=== PATIENT | female | born 1950 | race Caucasian/White ===

== ENCOUNTER 2019-07-31 09:01 | Day surgery (SDC) | payer MEDICARE ==
[~2019-07-31] VITALS: Ht 154.9 cm; Wt 117.3 kg
[~2019-07-31 09:01] MED LIST: ACET120S PO; CITA20 PO; NAPR220 PO; TOLT4 PO
--- NOTE | 2019-07-31 09:52 | NUR ---
Ambulatory in Day Surgery. History, Chart, Medications and Allergies reviewed before start of procedure.Patient confirms NPO status and agrees with scheduled surgery. Patient reports completing Chlorhexadine shower X2 prior to admission to hospital.Surgical site prepped with 2% Chlorhexidine cloth wipe. Lungs clear T/O to Auscultation.
--- NOTE | 2019-07-31 15:30 | NUR ---
VSS. TXA STARTED. ASSESSMENT CHARTED. FAMILY AT BEDSIDE. PT EATING CRACKERS.
--- NOTE | 2019-07-31 16:40 | NUR ---
ASSISTED PT TO BSC. PT USED WALKER APPROPRIATELY. PT ALERT AND ORIENTED. ABLE TO BEAR WEIGHT. FULL SENSATION TO BOTH LEGS. PULSES WNL.
--- NOTE | 2019-07-31 17:25 | NUR ---
ICE WATER PROVIDED. PATRICA FAMILY AT BEDSIDE.
--- NOTE | 2019-07-31 18:02 | NUR ---
PT RESTING IN POSITION OF COMFORT. NADN. PAIN 0/10.
--- NOTE | 2019-08-01 04:02 | NUR ---
NO ACUTE CHANGES. UP TO BSC SEVERAL TIMES WITH FWW AND STAND BY ASSIST. VOIDING WELL. ON RA SINCE BEGINNING OF SHIFT. LUNGS CLEAR. IV SALINE LOCKED AT 0015. LT KNEE WITH NO EVIDENCE OF BLEEDING, ROHINI WRAP AND POLAR PACK IN PLACE. CALL LIGHT IN PLACE.
[2019-08-01 04:25] LABS: BASOPHILS ABSOLUTE AUTO 0.01 K/mm3 (0.00-0.23); BASOPHILS PERCENT AUTO 0 % (0-2); EOSINOPHILS PERCENT AUTO 0 % (0-6); Hematocrit 34.1 % (33.0-51.0); Hemoglobin 11.4 g/dL (11.5-16.0); IMMATURE GRAN ABSOLUTE AUTO 0.08 K/mm3 (0.00-0.10); IMMATURE GRAN PERCENT AUTO 1 % (0-1); LYMPHOCYTES ABSOLUTE AUTO 1.17 K/mm3 (0.84-5.20); LYMPHOCYTES PERCENT AUTO 10 % (21-46); MONOCYTES ABSOLUTE AUTO 0.97 K/mm3 (0.16-1.47); MONOCYTES PERCENT AUTO 8 % (4-13); Mean Corpuscular HGB Conc 33.4 g/dL (31.5-36.5); Mean Corpuscular Volume 99 fL (80-100); Mean Platelet Volume 10.2 fL (9.1-12.4); NEUTROPHILS PERCENT AUTO 81 % (41-73); Platelet Count 218 K/mm3 (150-400); RDW Coefficient Variation 11.9 % (11.7-14.2); RDW Standard Deviation 43.6 fL (35.1-46.3); Red Blood Cell Count 3.45 M/mm3 (3.80-5.20); White Blood Cell Count 11.53 K/mm3 (4.00-11.30)
[2019-08-01 04:41] LABS: Bun/Creatinine Ratio 17.6 (12.0-20.0); Creatinine, Blood 1.25 mg/dL (0.40-1.00); Magnesium, Blood 1.8 mg/dL (1.6-2.4); Potassium, Blood 4.4 mmol/L (3.5-5.5)
[2019-08-01] MEDS ORDERED: ASPI325 PO (13:15)
[2019-08-01] MEDS ORDERED: OXYC5 PO (13:16)
[2019-08-01] MEDS ORDERED: PROM25 PO (13:16)
--- NOTE | 2019-08-01 14:36 | NUR ---
PATIENT D/C'D HOME WITH FRIEND AT THIS TIME. PATIENT STATES UNDERSTANDING OF MEDS, WOUND CARE, ACTIVITY, OP PT, F/U APPT, ETC. PATIENT REPORTS PAIN CONTROLLED WITH APAP AND TORADOL. TOLERATING PO. VOIDING. NO ACUTE CHANGES OR C/O AT THIS TIME.
== END 2019-08-01 14:37 | disposition home or self-care (01) ==
LOC: ORSCMMR 09:01 → ORD 10:30 → ORSCMMR 10:40 → ORD 10:40 → SURS 14:30 → ORSCMMR 08-01 14:37
PROVIDERS: Orthopaedic Surgery
PROC: 8E0YXBZ Computer Assisted Procedure of Lower Extremity (ICD-10-PCS; principal; 2019-07-31 10:40)
PROC: 0SRD0J9 Replacement of Left Knee Joint with Synthetic Substitute, Cemented, Open Approach (ICD-10-PCS; principal; 2019-07-31 10:40)
DX: M17.12 Unilateral primary osteoarthritis, left knee (principal); E66.01 Morbid (severe) obesity due to excess calories; Z68.42 Body mass index [BMI] 45.0-49.9, adult; Z79.899 Other long term (current) drug therapy
CPT/HCPCS: 36415; 73560-LT; 80048; 83735; 85025; 88300; 97110; 97116; 97162; 97530; C1713; C1776; J0171; J0690; J0735; J1100; J1885; J2250; J2370; J2405; J2704; J2795; J3010; J7120

== ENCOUNTER 2020-04-15 09:00 | Day surgery (SDC) | payer MEDICARE, OTHER ==
[~2020-04-15] VITALS: Ht 160 cm; Wt 121.8 kg
[~2020-04-15 09:00] MED LIST changes: +ASPI325 PO; +OXYC5 PO; +Oxybutynin Chlo10 MG PO; +PROM25 PO
--- NOTE | 2020-04-15 10:15 | NUR ---
Ambulatory in Day Surgery History, Chart, Medications and Allergies reviewed before start of procedure. Lungs clear T/O to Auscultation. Patient confirms NPO status and agrees with scheduled surgery. Surgical site prepped with 2% Chlorhexidine cloth wipe. Patient reports completing Chlorhexadine shower X2 prior to admission to hospital.
--- NOTE | 2020-04-15 14:56 | NUR ---
POST OP: REPORT RECIEVED FROM KENNETH, DIAMOND CLEAVER. PT TO UNIT AT ABOUT 1430. UPON ASSESSMENT PT IS A/O, VSS. REPORTS PAIN 0/10, CSM INTACT, WIGGLES TOES. SURGICAL SITE WNL. PT ABLE TO EAT SOME ICE CHIPS. WILL CTM
--- NOTE | 2020-04-15 19:43 | NUR ---
SUMMARY: NO ACUTE CHANGE SINCE POST OP. PT A/O, VSS. SURGICAL SITE WNL. ABLE TO WORK WITH PHYSCIAL THERAPY. UP TO VOID AND SAT IN CHAIR FOR DINNER. PT HAS RATED PAIN 2/10, HAS DENIED NEED FOR OXYCODONE. TYLENOL AND TORADOL GIVEN. NO SAFETY CONCERNS AT THIS TIME. PT USING CALL LIGHT. REPORT GIVEN TO MYRON SANTANA RN.
[2020-04-16 04:26] LABS: BASOPHILS ABSOLUTE AUTO 0.01 K/mm3 (0.00-0.23); BASOPHILS PERCENT AUTO 0 % (0-2); EOSINOPHILS PERCENT AUTO 0 % (0-6); Hemoglobin 11.3 g/dL (11.5-16.0); IMMATURE GRAN ABSOLUTE AUTO 0.06 K/mm3 (0.00-0.10); IMMATURE GRAN PERCENT AUTO 1 % (0-1); LYMPHOCYTES ABSOLUTE AUTO 0.85 K/mm3 (0.84-5.20); LYMPHOCYTES PERCENT AUTO 7 % (21-46); MONOCYTES ABSOLUTE AUTO 0.91 K/mm3 (0.16-1.47); MONOCYTES PERCENT AUTO 8 % (4-13); Mean Corpuscular HGB Conc 32.3 g/dL (31.5-36.5); Mean Corpuscular Volume 96 fL (80-100); Mean Platelet Volume 10.2 fL (9.1-12.4); NEUTROPHILS ABSOLUTE AUTO 9.88 K/mm3 (1.96-9.15); NEUTROPHILS PERCENT AUTO 84 % (41-73); Platelet Count 231 K/mm3 (150-400); RDW Coefficient Variation 12.7 % (11.7-14.2); Red Blood Cell Count 3.64 M/mm3 (3.80-5.20); White Blood Cell Count 11.71 K/mm3 (4.00-11.30)
[2020-04-16 04:44] LABS: Bun/Creatinine Ratio 13.9 (12.0-20.0); Calcium, Blood 9.9 mg/dL (8.5-10.1); Creatinine, Blood 1.44 mg/dL (0.40-1.00); Potassium, Blood 4.2 mmol/L (3.5-5.5)
--- NOTE | 2020-04-16 05:01 | NUR ---
SHIFT SUMMARY LYING IN SEMI FOWLERS WITH EYES OPEN WHILE WATCHING TV. AAO X3, HOLDER, FOLLOWS ALL COMMANDS. DENIES PAIN OR DISCOMFORT, ABLE TO REPOSITION SELF IN BED PRN. LEFT KNEE IN ROHINI WRAP THAT IS C/D/I. CRYOTHERAPY IN PLACE FOR COMFORT. DENIES FURTHER NEEDS OR WANTS AT THIS TIME. EXPECTED D/C HOME TODAY. SAFETY MEASURES IN PLACE. WILL CONTINUE TO MONITOR AND GIVE HAND OFF TO ONCOMING SHIFT USING SBAR.
[2020-04-16] MEDS ORDERED: ASPI325 PO (11:23)
[2020-04-16] MEDS ORDERED: PROM25 PO (11:24)
[2020-04-16] MEDS ORDERED: OXYC5 PO (11:24)
[2020-04-16] MEDS ORDERED: BACTRIM DS TAB1 EACH PO (11:26)
--- NOTE | 2020-04-16 13:36 | NUR ---
DISCHARGE INSTRUCTIONS GONE OVER WITH PT AND FRIEND. PT STATED UNDERSTANDING. EXTRA DRESSINGS PROVIDED TO PT FOR POST OP CARE. PT REPORTED SHE ALREADY HAD POST OP PRESCRIPTIONS. BELONGINGS GATHERED AND TRANSPORTED WIT PT. PT ESCORTED OUT BY PCT VIA WHEELCHAIR AND DRIVEN HOME BY FRIEND.
== END 2020-04-16 13:40 | disposition home or self-care (01) ==
LOC: ORSCMMR 09:00 → SURS 14:32 → ORSCMMR 04-16 13:40
PROVIDERS: Orthopaedic Surgery
PROC: 0SRC0J9 Replacement of Right Knee Joint with Synthetic Substitute, Cemented, Open Approach (ICD-10-PCS; principal; 2020-04-15 10:30)
PROC: 8E0YXBZ Computer Assisted Procedure of Lower Extremity (ICD-10-PCS; principal; 2020-04-15 10:30)
DX: M17.11 Unilateral primary osteoarthritis, right knee (principal); E66.01 Morbid (severe) obesity due to excess calories; Z68.42 Body mass index [BMI] 45.0-49.9, adult; Z79.899 Other long term (current) drug therapy
CPT/HCPCS: 36415; 73560-RT; 80048; 83735; 85025; 88300; 97110; 97116; 97162; 97530; A9270-GY; C1713; C1776; J0171; J0690; J0735; J1100; J1885; J2250; J2370; J2405; J2704; J2795; J3010; J3370; J7120